=== PATIENT | female | born 1960 | race Caucasian/White ===

== ENCOUNTER 2020-09-30 09:45 | Outpatient (CLI) | payer BC, SELFPAY ==
--- NOTE | ~2020-09-30 | MM_ITS ---
EXAMINATION: MM screening [facility] BI w josh HISTORY: Screening mammogram TECHNIQUE: Craniocaudal and mediolateral oblique 3-D tomosynthesis images were obtained and synthetic 2-D images were generated. CAD analysis was submitted and interpreted. COMPARISON: 03/19/2011, 10/15/2008 BREAST PARENCHYMAL COMPOSITION: There are scattered areas of fibroglandular density. FINDINGS: There is no evidence of suspicious mass, calcification, or architectural distortion to sugg est malignancy in either breast. There has been no suspicious interval change. IMPRESSION: 1. No mammographic evidence of malignancy. 2. Recommend routine screening mammography in one year. BI-RADS Category 1: Negative Reviewed, dictated and finalized at location A.
== END 2020-09-30 09:46 | disposition home or self-care (01) ==
PROVIDERS: PCP Family Medicine; Visit Provider Physician Assistant
DX: Z12.31 Encounter for screening mammogram for malignant neoplasm of breast (principal)
CPT/HCPCS: 77063; 77067

== ENCOUNTER → 2021-05-22 14:55 | Outpatient (CLI) | payer BC, SELFPAY ==
--- NOTE | ~2021-05-22 | DEXA_ITS ---
Bone Density Report Name: [place] Age: 60 Sex: Female Ethnicity: White Date of : 1960 Indication: postmenopausal; screening for osteoporosis; parental hip fracture; Referring Provider: CHANTEL MITCHELL Study: Bone densitometry was performed. Exam Date: May 22, 2021 Accession number: [id number] Bone Density: Region BMD T-score Z-score Classification AP Spine (L1-L4) 1.116 0.6 2.0 Normal Femoral Neck (Left) 0.856 0.1 1.3 Normal Total Hip (Left) 0.991 0.4 1.3 Normal Femoral Neck (Right) 0.874 0.2 1.5 Normal Total Hip (Right) 0.992 0.4 1.3 Normal Total Hip Mean 0.992 0.4 1.3 Normal World Health Organization criteria for BMD impression classify patients as: Normal (T-score at or above -1.0), Osteopenia (T-score between -1.0 and -2.5), or Osteoporosis (T-score at or below -2.5). 10-year Fracture Risk: FRAX not reported because: All T-scores for Spine Total, Hip Total, Femoral Neck at or above -1.0 Clinical Information Provided by Patient: Parent has had a hip fracture Patient maximum height was 71 Menopause Age: 53 No regular weight bearing exercise Drinks caffeinated beverages Onset of menses at age 15 Number of children 3 Impression: The patient has normal bone mass. The patient has risk factors, including: parental hip fracture. Discussion: BONE DENSITY IS ABOVE THE MINIMUM DESIRABLE LEVEL AT ALL SKELETAL SITES TESTED. This patient?s bone mineral density is above the minimum desirable level (T-score -1.0 or better) at all sites measured. The patient should follow a healthful lifestyle (good nutrition with adequate calcium and vitamin D, and appropriate weight-bearing exercise). Follow-Up: Consider repeating this study in 5 years or sooner if there is some new clinical indication. Reported by: CITLALY on 05/22/2021 3:13:00 PM. Reviewed, dictated and finalized at location ADonny PINEDA
== END ==
PROVIDERS: PCP Obstetrics & Gynecology Gynecology; Visit Provider Obstetrics & Gynecology Gynecology
DX: Z78.0 Asymptomatic menopausal state (principal)
CPT/HCPCS: 77080; 77081

== ENCOUNTER 2022-05-02 11:34 | Outpatient (CLI) | payer BC, SELFPAY ==
--- NOTE | ~2022-05-02 | XR_ITS ---
XR chest 2V DATE: 05/02/2022 12:06 INDICATION: Cough TECHNIQUE: PA and lateral views COMPARISON: None FINDINGS: Normal heart size. No hilar or mediastinal enlargement. Moderate bilateral hyperinflation. No pulmonary infiltrate or consolidation, pleural effusion or pulmonary vascular congestion or pneumo thorax is detected. IMPRESSION: Moderate bilateral hyperinflation. No active cardiopulmonary disease Reviewed, dictated and finalized at location B. TOR OPERATOR BATTERY IMPRESSION: Moderate bilateral hyperinflation. No active cardiopulmonary diseas e
== END 2022-05-02 11:35 ==
LOC: MICIMG 11:36
PROVIDERS: PCP Family Medicine; Visit Provider Nurse Practitioner Gerontology
DX: R05.9 Cough, unspecified (principal); R91.8 Other nonspecific abnormal finding of lung field
CPT/HCPCS: 71046

== ENCOUNTER 2024-05-22 14:54 | Outpatient (CLI) | payer BC, SELFPAY ==
--- NOTE | ~2024-05-22 | MM_ITS ---
EXAMINATION: MM screening [facility] BI w josh HISTORY: Screening TECHNIQUE: Craniocaudal and mediolateral oblique 3-D tomosynthesis images were obtained and synthetic 2-D images were generated. CAD analysis was submitted and interpreted. COMPARISON: 09/30/2020 BREAST PARENCHYMAL COMPOSITION: Not dense: There are scattered areas of fibroglandular density. FINDINGS: There is a developing focal asymmetry laterally in the right breast on CC view, posterior t hird. There is a low-density mass in the upper outer quadrant of the left breast. IMPRESSION: 1. Developing right breast asymmetry laterally on CC view. Low-density mass upper outer quadrant of the left breast obscured by fibroglandular tissue. 2. Additional mammographic views and possible breast ultrasound are recommended. BI-RADS Category 0: Incomplete: Needs additional imaging evaluation. Reviewed, dictated and finalized at location B. NING ANALYST IMPRESSION: 1. Developing right breast asymmetry laterally on CC view. Low-density mass upper outer quadrant of the left breast obscured by fibrogland ular tissue. 2. Additional mammographic views and possible breast ultrasound are recommended . BI-RADS Category 0: Incomplete: Needs additional imaging evaluation.
--- OUTSIDE RECORDS SUMMARY | 2024-05-22 15:00 | XMS_ITS | Referral Summary ---
Author Organization [facility] Address [address] [place] [address] Care Team Providers Care Senior Project Manager Engineering Name Role Phone Unavailable Primary Care Provider Unavailabl e Source Comments [facility],non-owned Affiliates and Associated Physician Practices is amultiple site organization consisting of ambulatory clinics and hospital sitesin [place], [place], [place] and [place]. This disclosure is being madepursuant to the Care Everywhere program and may not contain all information available regarding this patient. Last updated 18.[facility] [place] Social History Tobacco Use Types Packs/Day Years Used Date Smoking Tobacco: Never Assessed Sex and Gender Information Value Date Recorded Sex Assigned at Not on file Gender Identity Not on file Sexual Orientation Not on file Plan of Treatment Not on file
--- OUTSIDE RECORDS SUMMARY | 2024-05-22 15:00 | XMS_ITS | Clinical Summary ---
Author Organization [facility] [employer] Address [address] [place] [address] Care Team Providers Care Metal Storage Worker Name Role Phone Unavailable Primary Care Provider Unavailabl e Source Comments [facility] [employer],non-owned Affiliates and Associated Physician Practices is amultiple site organization consisting of ambulatory clinics and hospital sitesin [place], [place], [place] and [place]. This disclosure is being madepursuant to the Care Everywhere program and may not contain all information available regarding this patient. Last updated 18.[facility] [employer] Social History Tobacco Use Types Packs/Day Years Used Date Smoking Tobacco: Never Assessed Sex and Gender Information Value Date Recorded Sex Assigned at Not on file Gender Identity Not on file Sexual Orientation Not on file Plan of Treatment Health Maintenance Due Date Last Done Comments COLOGUARD (AGES 45-75) - COL ON CA SCREENING 1960 COLON MONITORING 1962 COLONOSCOPY - COLON CA SCREENING 1962 CT COLONOGRAPHY - COLON CA SCREENING 1960 Colorectal Cancer Screening 1960 FIT - COLON CA SCREENING 1962 FLEX SIG - COLON CA SCREENING 1962 LIPID TESTING 1960 MAMMOGRAM 1960 PAP SMEAR 1962 HIV SCREENING 1977 HEPATITIS C SCREENING 06/11/1980 DTAP/TDAP/TD VACCINES (1 - Tdap) 1981 PNEUMOCOCCAL VACCINE 50+ (1 of 1 - PCV) 2012 ZOSTER VACCINE (1 of 2) 2012 COVID-19 VACCINE (1 - 2023-2 5 season) 2023 INFLUENZA VACCINE (#1) 2023 DEPRESSION SCREENING 04/15/2024 Respiratory Syncytial Virus (RSV) Vaccine Pt: or over 60 yrs (1 - 1-dose 75+ series) 2037 HEPATITIS B VACCINE Aged Out No longe r eligible based on patient's age to complete this topic HIB VACCINE Aged Out No longer eligi ble based on patient's age to complete this topic HPV VACCINE Aged Out No longer eligi ble based on patient's age to complete this topic MENINGOCOCCAL (Group B) VACCINE Aged Out No longer eligible based on patient's age to complete this topic MENINGOCOCCAL VACCINE Aged Out No natalie taryn eligible based on patient's age to complete this topic PNEUMOCOCCAL VACCINE Aged Out No long er eligible based on patient's age to complete this topic
--- OUTSIDE RECORDS SUMMARY | 2024-05-22 15:00 | XMS_ITS | Clinical Summary ---
Author Organization [facility] Address [address] [place] [address] Care Team Providers Care Order Entry Technician Name Role Phone Leanne Pham MD Primary Care Provider [phone] Allergies Active Allergy Reactions Criticality Noted Date Comments Penicillins Rash Low 03/09/2022 Medications levothyroxine (SYNTHROID) 150 MCG tablet Take 150 mcg by mouth daily. Active valsartan (DIOVAN) 160 MG tablet Take 160 mg by mouth daily. Active Active Problems Problem Noted Date Diagnosed Date Dysphagia 03/09/2022 Overview (03/09/2022): Added automatically from request for surgery [id number] Social History Tobacco Use Types Packs/Day Years Used Date Smoking Tobacco: Never Smokeless Tobacco: Never Tobacco Cessation:Counseling Given: Not Answered Alcohol Use Standard Drinks/Week Comments Yes 0 (1 standard drink = 0.6 oz pur e alcohol) socially Comments No Sex and Gender Information Value Date Recorded Sex Assigned at Not on file Legal Sex Female 9:33 AM PORTER MARINA Gender Identity Not on file Sexual Orientation Not on file Last Filed Vital Signs Vital Sign Reading Time Taken Comments Blood Pressure 141/90 03/09/2022 11:50 AM PORTER MARINA Pulse 73 03/09/2022 11:50 AM PORTER MARINA Temperature 36.1 C (97 F) 03/09/2022 11:28 AM PORTER MARINA Respiratory Rate 22 03/09/2022 11:5 0 AM PORTER MARINA Oxygen Saturation 93% 03/09/2022 11: 50 AM PORTER MARINA Inhaled Oxygen Concentration - - Weight 150.4 kg (331 lb 9.2 oz) 03/09/2022 9:41 AM PORTER MARINA Height 180.3 cm (5' 11 ) 03/09/2022 9:41 AM PORTER MARINA Body Mass Index 46.24 03/09/2022 9:41 AM PORTER MARINA Plan of Treatment Health Maintenance Due Date Last Done Comments Cervical Cancer Screening Pa p Smear (Age 30 to 64) Every 3 Years 1960 Colorectal Cancer Screening Colonoscopy (10 Years) 1962 Annual Physical 1965 Hepatitis C 1980 DTaP, Tdap and Td Vaccines ( 1 - Tdap) 1981 Cervical Cancer Screening Pa p with HPV Testing (Age 30 to 64) Every 5 Years 1992 Cervical Cancer Screening wi th HPV 1992 Mammogram Screening 2002 Zoster Vaccines (1 of 2) 2012 RSV Immunization or 60+ Years (1 - Risk 60-74 years 1-dose series) 2022 COVID-19 Vaccine (3 - 2023-2 5 season) 2023 07/05/2020, 06/14/2020 Influenza Adult (#1) 2024 Meningococcal B Vaccine Aged Out No l onger eligible based on patient's age to complete this topic Meningococcal Vaccine Aged Out No natalie taryn eligible based on patient's age to complete this topic Pneumococcal Vaccine: Pediatrics (0 to 5 Years) and At-Risk Patients (6 to 64 Years) Aged Out No longer eligible b ased on patient's age to complete this topic RSV Immunizations Under 20 Months Aged Out No longer eligible b ased on patient's age to complete this topic Insurance Care Teams Order Entry Technician Relationship Specialty Start Date End Date Leanne Pham MD [address] [facility] [address] [place] [address] PCP - General FAMILY PRACTICE 03/09/22
--- OUTSIDE RECORDS SUMMARY | 2024-05-22 15:00 | XMS_ITS | Patient Health Summary ---
Author Organization [facility] [employer] Address [address] [place] [address] Care Team Providers Care Environmental Science Instructor Name Role Phone Unavailable Primary Care Provider Unavailabl e Note from [facility],non-owned Affiliates and Associated Physician Practices is amultiple site organization consisting of ambulatory clinics and hospital sitesin [place], [place], [place] and [place]. This disclosure is being madepursuant to the Care Everywhere program and may not contain all information available regarding this patient. Last updated 18.[facility] [employer] Social History Tobacco Use Types Packs/Day Years Used Date Smoking Tobacco: Never Assessed Sex and Gender Information Value Date Recorded Sex Assigned at Not on file Gender Identity Not on file Sexual Orientation Not on file Procedures * GROSS + MICRO EXAM(Performed 06/03/2002) Results * GROSS + MICRO EXAM (06/03/2002 7:51 AM [employer]) Result CASE NUMBER [id number] Comment: ORDERING PHYSICIAN CHANTEL MITCHELL SPECIMEN TYPE Placenta Date 06/03/2002 Physician Lucila Gross Description Received fresh, labeled placenta and consists of three placental discs which are all focally attached to each other by varying clips of placental tissue with attached membranes and cord which weighs 990 gms in aggregate. The disc with three clamps on the umbilical cord is designated placenta A. The placental disc of A measures 14.5 x 16.8 and up to 1.4 cm in thickness. The site of attachment to placenta B which has two clamps on the umbilical cord measures 8.0 cm in greatest dimension. The membranes are of a translucent pinkish sierra color and are attached marginally. The umbilical cord has a eccentric insertion inserting 1.5 cm from the nearest margin, it measures 21.5 cm in length and 1.1 cm in diameter and on cut section three vessels are identified. The surface has a glistening blue sierra color, with the usual vascular arcade without nodules. The maternal surface is soft deep pinkish sierra with a small amount of adherent clotted blood. On serial sectioning no infarcts are grossly identified. Corrosion Prevention Metal Sprayer sections of placenta A with three clamps on the umbilical cord are submitted as follows A- membranes and cord, B- surface, C-maternal surface, D-membranes septae between placenta A and placenta B. The placenta with two clamps on the umbilical cord is designated as placenta B. The placental disc measures 13.4 cm x 12.4 cm and up to 1.4 cm in thickness. The site of placental disc attachement has been previously described. The membranes are of a translucent pinkish sierra color and are attached marginally. The umbilical cord has a eccentric insertion, inserting up to 0.5 cm from the nearest margin. It measures 25 cm in length and up to 1.0 cm in diameter and on cut section three vessels are identified. The surface has a glistening blue sierra color with the usual vascular arcade without nodules. The maternal surface is of a soft deep pinkish sierra color with a small amount of adherent clotted blood. On serial sectioning no infarcts are grossly identified. Corrosion Prevention Metal Sprayer sections of placenta B are submitted as follows E-membranes and umbilical cord, F- surface, G-maternal surface, H-membrane septae between placenta B and C. The last placenta is designated as placenta C and it also has two clamps attached to the placental disc. This placental disc measures 17.0 x 12.5 and up to 1.4 cm in thickness. The placental disc site of attachement between placenta C and placenta D measures 1.0 cm in greatest dimension. The membranes are of a translucent pinkish sierra color and are attached marginally. The umbilical cord has a membranous insertion. It measures 23.0 cm in length and up to 0.7 cm in diameter and on cut section three vessels are identified. The surface has a glistening blue sierra color with the usual vascular arcade without nodules. The maternal surface is of a soft pinkish sierra with a small amount of adherent clotted blood. On serial sectioning no infarcts are grossly identified. Corrosion Prevention Metal Sprayer sections of placenta C are submitted as follows I-membranes and umbilical cord, J- surface, K-maternal surface. KIMR/toma Microscopic Exam Microscopic examination of sections labeled A, B, and C are from placenta A. Sections of the umbilical cord confirm the presence of three vessels. There is no inflammation seen. Sections of the membranes show no inflammation in the amnion or chorion. Sections of the placental disc show mature term chorionic villi. There is no evidence of inflammation or infarction. Sections labeled D are of the membrane septa between placenta A and B. A chorion layer is identified. There is no inflammation in the amnion or chorion. Sections labeled E, F, and G are from placenta B. Sections of the umbilical cord confirm the presence of three vessels. No inflammation is seen. Sections of the membranes show no inflammation in the amnion or chorion. Sections of the placental disc show mature term chorion. There is no evidence of inflammation or infarction. Sections labeled H are of the membrane septa between placenta B and C. Sections of the membranes show the presence of a chorion layer. There is no inflammation in the amnion or the chorion. Sections labeled I, J, and K are from placenta C. Sections of the umbilical cord confirm the presence of three vessels. No inflammation is seen. Sections of the membranes show no inflammation in the amnion or chorion. Sections of the placental disc show mature term chorionic villi. There is no evidence of inflammation or infarction. MD Lisa., (RPT/) Diagnosis I. Triplet placenta A. Triamnionic trichorionic triplet placenta. II. Placenta A A. Umbilical cord with three vessels B. membranes - no pathologic diagnosis C. Placental disc - no pathologic diagnosis III. Placenta B A. Umbilical cord with three vessels B. membranes - no pathologic diagnosis C. Placental disc - no pathologic diagnosis IV. Placenta C A. Umbilical cord with three vessels B. membranes - no pathologic diagnosis C. Placental disc - no pathologic diagnosis MD Lisa RPT/ [employer] Librarian [facility] Pathologist Ozzy Baeza M.D. [place]. 06/04/2002 1536 <1> CPT code 49722 x3 MISCELLANEOUS SAMPLES / Unknown 06/03/2002 7:51 AM [employer] 06/03/2002 7:51 AM [employer] Historical Provider LAB - PATHOLOGY/C YTOLOGY ORDERABLES
== END 2024-05-22 14:55 | disposition home or self-care (01) ==
LOC: ANHIMG 14:57
PROVIDERS: PCP Family Medicine; Visit Provider Physician Assistant
DX: Z12.31 Encounter for screening mammogram for malignant neoplasm of breast (principal); R92.8 Other abnormal and inconclusive findings on diagnostic imaging of breast
CPT/HCPCS: 77063; 77067

== ENCOUNTER 2024-06-11 11:20 | Outpatient (CLI) | payer BC, SELFPAY | END 2024-06-11 11:21 | disposition home or self-care (01) | LOC: ANHIMG 11:21 | PROVIDERS: PCP Family Medicine; Visit Provider Student in an Organized Health Care Education/Training Program | DX: R92.8 Other abnormal and inconclusive findings on diagnostic imaging of breast (principal) | CPT/HCPCS: 76642; 77062; 77066; G0279 ==